=== PATIENT | female | born 1985 | race Caucasian/White ===

== ENCOUNTER → 2018-05-29 | Outpatient (CLI) | payer BC | LOC: FIMAGING 14:33 | PROVIDERS: ATTEND Midwife | DX: R10.2 Pelvic and perineal pain (principal) ==

== ENCOUNTER → 2018-12-01 | Outpatient (CLI) | payer BC | LOC: FIMAGING 12:25 | PROVIDERS: ATTEND Obstetrics & Gynecology | DX: D25.9 Leiomyoma of uterus, unspecified (principal) ==